=== PATIENT | female | born 1980 | race Two or more races ===

== ENCOUNTER 2020-01-13 22:53 | Observation (INO) | payer MEDICAID ==
[~2020-01-13] VITALS: Ht 160 cm; Wt 71.7 kg
[2020-01-13] MEDS ORDERED: BETAMETHASONE ACET (6MG/ML) 5ML VIAL ONE (23:52)
[2020-01-14] MEDS ORDERED: BETAMETHASONE ACET (6MG/ML) 5ML VIAL IM SCH (10:00)
== END 2020-01-14 00:17 | disposition home or self-care (01) ==
LOC: UNDOADMOB 22:53 → LDRP 22:53 → UNDODISOB 01-14 00:17
PROVIDERS: ADMIT Obstetrics & Gynecology; ATTEND Obstetrics & Gynecology
DX: O46.93 Antepartum hemorrhage, unspecified, third trimester (principal); Z3A.35 35 weeks gestation of pregnancy
CPT/HCPCS: 59025; 81002; 96372; 99284; G0378; J0702

== ENCOUNTER 2020-04-22 20:18 | Emergency (ER) | payer MEDICAID ==
[~2020-04-22] VITALS: Ht 157.5 cm; Wt 72.1 kg
[2020-04-22 21:18] LABS: Basophils # (auto) 0 10 ^3/uL (0-0.2); Basophils % (auto) 0.4 % (0.0-2.0); Eosinophils # (auto) 0.1 10 ^3/uL (0-0.8); Eosinophils % (auto) 1.7 % (0.0-7.0); Hemoglobin 12.1 g/dL (12.2-16.2); Lymphocytes # (auto) 1.8 10 ^3/uL (0.4-5.4); Lymphocytes % (auto) 29.8 % (10.0-50.0); Mean Corpuscular Hemoglobin 27.2 pg (28.0-32.0); Mean Corpuscular Hgb Conc. 32.8 g/dL (32.0-36.0); Mean Corpuscular Volume 83.1 fL (80.0-100.0); Monocytes # (auto) 0.6 10 ^3/uL (0-1.3); Monocytes % (auto) 9.6 % (0.0-12.0); Neutrophils # (auto) 3.5 10 ^3/uL (1.6-8.6); Neutrophils % (auto) 58.5 % (37.0-80.0); Platelet Count (auto) 323 10^3/uL (140-450); Red Blood Cells 4.45 10^6/uL (4.0-5.20); Red Cell Distribution Width 13.7 % (11.8-14.3)
[2020-04-22 21:37] LABS: Albumin 3.8 g/dL (3.4-5.0); Anion Gap 4 (5-15); Blood Urea Nitrogen 16 mg/dL (7-18); Calcium 8.9 mg/dL (8.5-10.1); Carbon Dioxide 24 mmol/L (21-32); Chloride 108 mmol/L (98-107); Glucose 98 mg/dL (74-106); Potassium 4.1 mmol/L (3.5-5.1); Sodium 136 mmol/L (136-145)
[2020-04-22 21:45] LABS: Alanine Aminotransferase 25 U/L (13-56); Alkaline Phosphatase 98 U/L (45-117); Aspartate Aminotransferase 18 U/L (15-37); BUN/Creatinine Ratio 21.1; Bilirubin, Total 0.2 mg/dL (0.2-1.0); GFR African American 108 mL/min; GFR Non-African American 89 mL/min; Total Protein 8.2 g/dL (6.4-8.2)
[2020-04-23 00:13] LABS: Urine Bacteria FEW /hpf (None Seen); Urine Blood Negative /uL (Negative); Urine Specific Gravity 1.009 (1.001-1.035); Urine WBC 3 /hpf (0 - 5)
[2020-04-23 01:25] VITALS: BP 113/74
== END 2020-04-23 01:28 | disposition home or self-care (01) ==
LOC: EEVIPCON 20:18 → ER 20:18
DX: N39.0 Urinary tract infection, site not specified (principal); R07.9 Chest pain, unspecified; M79.642 Pain in left hand; M79.641 Pain in right hand; X58.XXXA Exposure to other specified factors, initial encounter; Y93.01 Activity, walking, marching and hiking; Y92.89 Other specified places as the place of occurrence of the external cause; Y99.8 Other external cause status
CPT/HCPCS: 36415; 71045; 80053; 81001; 83880; 84484; 85025; 93005

== ENCOUNTER 2023-03-21 08:33 | Emergency (ER) | payer MEDICAID, OTHER ==
[~2023-03-21] VITALS: Ht 157.5 cm; Wt 79.3 kg
[2023-03-21 09:04] VITALS: BP 131/77; PULSE 72; RESP 16; TEMP 98.7; O2SAT 99
[2023-03-21] MEDS ORDERED: NABU-72 PO ×3 (09:37→10:14)
== END 2023-03-21 09:59 | disposition home or self-care (01) ==
LOC: ER 08:33
DX: M54.59 Other low back pain (principal); V89.2XXA Person injured in unspecified motor-vehicle accident, traffic, initial encounter; Y93.I9 Activity, other involving external motion; Y92.89 Other specified places as the place of occurrence of the external cause; Y99.8 Other external cause status
CPT/HCPCS: 72100

== ENCOUNTER 2023-12-16 11:08 | Emergency (ER) | payer MEDICAID, OTHER ==
[~2023-12-16] VITALS: Ht 157.5 cm; Wt 77.7 kg
[~2023-12-16 11:08] MED LIST: NABU-72 PO
[2023-12-16] MEDS: ONDANSETRON ODT 4 MG TAB PO ONE (11:30)
[2023-12-16] MEDS ORDERED: ZOFR4T PO (11:48)
[2023-12-16 11:49] VITALS: BP 124/75; PULSE 105; RESP 16; TEMP 99.5; O2SAT 98
[2023-12-16 12:21] LABS: Urine Bacteria FEW /hpf (None Seen); Urine Blood Negative /uL (Negative); Urine Clarity Clear (Clear); Urine Color Yellow (Yellow); Urine Mucus FEW (None Seen); Urine Protein, UAD TRACE (Negative); Urine Specific Gravity 1.028 (1.001-1.035); Urine Urobilinogen Normal (Negative); Urine WBC 1 /hpf (0 - 5); Urine pH 5.5 (5.0-9.0)
== END 2023-12-16 12:54 | disposition home or self-care (01) ==
LOC: ER 11:08
DX: K52.9 Noninfective gastroenteritis and colitis, unspecified (principal); B34.9 Viral infection, unspecified; E03.9 Hypothyroidism, unspecified; Z79.899 Other long term (current) drug therapy
CPT/HCPCS: 81001; 81025; 99283; Q0162